=== PATIENT | male | born 1965 | race Caucasian/White ===

== ENCOUNTER → 2019-09-27 13:49 | Outpatient (BNVA) | payer MEDICARE, SELFPAY | PROVIDERS: Visit Provider Anesthesiology | DX: G89.29 Other chronic pain (principal); M54.12 Radiculopathy, cervical region; M51.26 Other intervertebral disc displacement, lumbar region; M47.817 Spondylosis without myelopathy or radiculopathy, lumbosacral region; R51 Headache; Z79.891 Long term (current) use of opiate analgesic | CPT/HCPCS: 99214 ==

== ENCOUNTER 2019-10-23 11:53 | Outpatient (CLI) | payer MEDICARE, SELFPAY ==
--- NOTE | 2019-10-23 12:06 | ECG_ITS ---
NAME OF STUDY: TREADMILL STRESS TEST INDICATION: PALPITATIONS AND TACHY ARRYTHMIA, EXERCISE DATA: The patient was exercised by Won protocol. Baseline heart rate was 94 beats per minute. Baseline blood pressure was 130/86 millimeters of mercury. Target heart rate was 168 beats per minute. Maximum heart rate achieved was 152, which was 90 % of the target heart rate. Maximum blood pressure was 182/98 millimeters of mercury. Total exercise time was 3 minutes. Maximum METs achieved was 4.6, maximum VO2 was 16.1. The reason for ending the test was maximum effort achieved. The patient complained of shortness of breath during the stress test, which then resolved at the end of the test. ELECTROCARDIOGRAM: BASELINE: Sinus rhythm, normal axis, no significant ST-T changes at the baseline noted. EXERCISE: At the peak exercise level, No significant ST-T changes suggestive of ischemia noted. RECOVERY: During the recovery period, heart rate dropped appropriately. No significant ST-T changes in the recovery suggestive of ischemia noted. CONCLUSION: 1. Exercise capacity poor. 2. Heart rate response was appropriate. 3. Blood pressure response was appropriate. 4. Symptoms not suggestive of ischemia. 5. Electrocardiogram portion of the stress test was not suggestive of ischemia. 6. Nuclear scan will be documented separately. Please note that due to underachievement of Mets and low exercise capacity specificity and sensitivity of the EKG portion of stress test will be low Electronically Signed On 10-23-2019 18:29:46 BARGE WORKER by Lexi Pena M.D. [id number]
[2019-10-23 12:10] VITALS: BMI 33.8
[2019-10-23 14:46] VITALS: BP 157/87; PULSE 102
== END 2019-10-23 11:54 | disposition home or self-care (01) ==
LOC: CDL 11:58
PROVIDERS: Visit Provider Nurse Practitioner Family
DX: R00.2 Palpitations (principal); R00.0 Tachycardia, unspecified
CPT/HCPCS: 93017

== ENCOUNTER → 2019-11-26 13:49 | Outpatient (BNVA) | payer MEDICARE, SELFPAY | PROVIDERS: PCP Nurse Practitioner Family; Visit Provider Nurse Practitioner | DX: M47.817 Spondylosis without myelopathy or radiculopathy, lumbosacral region (principal); Z79.891 Long term (current) use of opiate analgesic | CPT/HCPCS: 99213 ==

== ENCOUNTER → 2020-03-13 13:52 | Outpatient (BNVA) | payer MEDICARE, SELFPAY | PROVIDERS: PCP Nurse Practitioner Family; Visit Provider Anesthesiology | DX: G89.29 Other chronic pain (principal); M51.26 Other intervertebral disc displacement, lumbar region; M47.817 Spondylosis without myelopathy or radiculopathy, lumbosacral region; M53.3 Sacrococcygeal disorders, not elsewhere classified; M54.12 Radiculopathy, cervical region; M77.10 Lateral epicondylitis, unspecified elbow; R51 Headache; Z79.891 Long term (current) use of opiate analgesic | CPT/HCPCS: 99214 ==

== ENCOUNTER → 2020-05-13 10:33 | Outpatient (BNVA) | payer MEDICARE, SELFPAY | PROVIDERS: Visit Provider Nurse Practitioner | DX: M51.26 Other intervertebral disc displacement, lumbar region (principal); M47.817 Spondylosis without myelopathy or radiculopathy, lumbosacral region; M53.3 Sacrococcygeal disorders, not elsewhere classified; M54.12 Radiculopathy, cervical region; Z79.891 Long term (current) use of opiate analgesic | CPT/HCPCS: 99213 ==

== ENCOUNTER → 2020-07-08 13:45 | Outpatient (BNVA) | payer MEDICARE, SELFPAY | PROVIDERS: PCP Nurse Practitioner Family; Visit Provider Anesthesiology | DX: M51.26 Other intervertebral disc displacement, lumbar region (principal); M47.817 Spondylosis without myelopathy or radiculopathy, lumbosacral region; M54.12 Radiculopathy, cervical region; R51.9 Headache, unspecified; M77.10 Lateral epicondylitis, unspecified elbow; M53.3 Sacrococcygeal disorders, not elsewhere classified; Z79.891 Long term (current) use of opiate analgesic | CPT/HCPCS: 99214 ==

== ENCOUNTER 2020-09-02 16:16 | Outpatient (CLI) | payer MEDICARE, SELFPAY ==
[2020-09-02 22:49] LABS: Alanine Aminotransferase 15 U/L (0-41); Albumin Level 3.9 g/dL (3.5-5.2); Alkaline Phosphatase 106 IU/L (40-130); Anion Gap 12.5 (5-19); Aspartate Amino Transferase 14 U/L (0-40); Blood Urea Nitrogen 16 mg/dL (6-20); Calcium 9.4 mg/dL (8.5-10.5); Carbon Dioxide 29 mmol/L (22-29); Chloride 103 mmol/L (98-107); Globulin 3.7 g/dL (1.3-4.6); Glomerular Filtration Rate 78.2 mL/min (90-130); Glucose 89 mg/dL (65-115); Osmolality Calculated 293 mOsm/kg (285-295); Potassium 3.5 mmol/L (3.5-5.1); Sodium 141 mmol/L (136-145); Total Bilirubin 0.2 mg/dL (0.15-1.2); Total Protein 7.6 g/dL (6.6-8.7)
== END 2020-09-02 16:17 | disposition home or self-care (01) ==
PROVIDERS: PCP Nurse Practitioner Family; Visit Provider Anesthesiology
DX: Z79.1 Long term (current) use of non-steroidal anti-inflammatories (NSAID) (principal)
CPT/HCPCS: 36415; 80053

== ENCOUNTER → 2020-09-10 13:54 | Outpatient (BNVA) | payer MEDICARE, SELFPAY | PROVIDERS: PCP Nurse Practitioner Family; Visit Provider Nurse Practitioner | DX: M51.26 Other intervertebral disc displacement, lumbar region (principal); M47.817 Spondylosis without myelopathy or radiculopathy, lumbosacral region; M53.3 Sacrococcygeal disorders, not elsewhere classified; M54.12 Radiculopathy, cervical region; Z79.891 Long term (current) use of opiate analgesic | CPT/HCPCS: 99213; 99214 ==

== ENCOUNTER → 2020-11-04 10:33 | Outpatient (BNVA) | payer MEDICARE, SELFPAY | PROVIDERS: PCP Nurse Practitioner Family; Visit Provider Nurse Practitioner | DX: M53.3 Sacrococcygeal disorders, not elsewhere classified (principal); M54.12 Radiculopathy, cervical region; M47.817 Spondylosis without myelopathy or radiculopathy, lumbosacral region; M51.26 Other intervertebral disc displacement, lumbar region; R10.9 Unspecified abdominal pain; Z87.442 Personal history of urinary calculi; Z79.891 Long term (current) use of opiate analgesic | CPT/HCPCS: 99213 ==

== ENCOUNTER → 2020-12-30 14:13 | Outpatient (BNVA) | payer MEDICARE, SELFPAY | PROVIDERS: PCP Nurse Practitioner Family; Visit Provider Anesthesiology | DX: G89.29 Other chronic pain (principal); M51.26 Other intervertebral disc displacement, lumbar region; M47.817 Spondylosis without myelopathy or radiculopathy, lumbosacral region; M54.12 Radiculopathy, cervical region; M54.9 Dorsalgia, unspecified; Z79.891 Long term (current) use of opiate analgesic | CPT/HCPCS: 99214 ==

== ENCOUNTER 2021-02-16 14:59 | Outpatient (CLI) | payer MEDICARE, SELFPAY ==
--- NOTE | 2021-02-16 15:00 | USCV_ITS ---
Jerrell Martinez Age: 56 Gender: M : 1965 Exam Date: 02/16/2021 14:52 Ordering Phys: Moni Ureña MD ([email or web address]) Technologist: Cindy Hernández [place] [facility] [place]: BLE RIGHT LEFT Brachial 153.00 mmHg Brachial 146.00 mmHg Pressure (mmHg) Waveform Pressure (mmHg) Waveform 152.00 HAND CLOTH FOLDER 180.00 153.00 DPA 167.00 1.02 Ankle/Brachial Index 1.10 0.97 Post-Exercise Ankle Brachial Index 1.08 117.00 Pre-Exercise Toe Pressure 169.00 FINDINGS Normal resting ABIs bilaterally Normal/near normal post exercise ABIs bilaterally Normal resting TBIs bilaterally CONCLUSIONS No evidence of any significant arterial obstruction, based on the above findings. Dr Reddy Gutierrez MD [facility] (Electronically Signed) Final Date: 22 Feb 2021 10:55 S
== END 2021-02-16 15:00 | disposition home or self-care (01) ==
PROVIDERS: PCP Nurse Practitioner Family; Visit Provider Internal Medicine Cardiovascular Disease
DX: M79.604 Pain in right leg (principal); M79.605 Pain in left leg
CPT/HCPCS: 93922

== ENCOUNTER 2021-02-17 15:14 | Outpatient (CLI) | payer MEDICARE, SELFPAY ==
--- NOTE | 2021-02-17 15:00 | USCV_ITS ---
Jerrell Martinez Age: 56 Gender: M : 1965 Exam Date: 02/17/2021 15:43 Ordering Phys: Moni Ureña MD ([email or web address]) Technologist: Cindy Hernández [place] [facility] [place]: HISTORY: PROCEDURES: FINDINGS: The veins were found to be easily compressible with spontaneous blood flow. Non pulsatile flow pattern. Significant venous reflux were noted in the proximal small saphenous vein segment of the right side, saphenofemoral junction and distal small saphenous vein segment on the left side CONCLUSIONS 1. No evidence of DVT in the above-mentioned identifiable veins. 2. Significant venous reflux of greater than 500 ms were noted at the proximal small saphenous vein segment on the right side. The venous segment was found to be of small caliber( 0.18cm), at this level. 3. Significant venous reflux of greater than 500 ms were noted at the mid small saphenous vein segment on the left side. The venous segment was a small caliber at this level, measuring 0.1 cm. Significant venous reflux also was noted at the left saphenofemoral junction. The venous segment was 0.68 cm in diameter and at the depth of 3.11 cm from the surface. Dr Reddy Gutierrez MD [facility] (Electronically Signed) Final Date: 22 Feb 2021 11:22 S
== END 2021-02-17 15:15 | disposition home or self-care (01) ==
LOC: RAD 15:17
PROVIDERS: PCP Nurse Practitioner Family; Visit Provider Internal Medicine Cardiovascular Disease
DX: M79.89 Other specified soft tissue disorders (principal)
CPT/HCPCS: 93970

== ENCOUNTER → 2021-03-16 13:21 | Outpatient (BNVA) | payer MEDICARE, SELFPAY | PROVIDERS: PCP Nurse Practitioner Family; Visit Provider Anesthesiology | DX: G89.29 Other chronic pain (principal); M47.817 Spondylosis without myelopathy or radiculopathy, lumbosacral region; M51.26 Other intervertebral disc displacement, lumbar region; M54.9 Dorsalgia, unspecified; M54.12 Radiculopathy, cervical region; R51.9 Headache, unspecified; Z79.891 Long term (current) use of opiate analgesic | CPT/HCPCS: 99214 ==

== ENCOUNTER → 2021-05-14 13:42 | Outpatient (BNVA) | payer MEDICARE, SELFPAY | PROVIDERS: PCP Nurse Practitioner Family; Visit Provider Anesthesiology | DX: G89.29 Other chronic pain (principal); M47.817 Spondylosis without myelopathy or radiculopathy, lumbosacral region; M51.26 Other intervertebral disc displacement, lumbar region; M54.12 Radiculopathy, cervical region; R51.9 Headache, unspecified; Z79.891 Long term (current) use of opiate analgesic | CPT/HCPCS: 99214 ==

== ENCOUNTER 2021-06-11 10:25 | Outpatient (CLI) | payer MEDICARE, SELFPAY ==
--- NOTE | 2021-06-11 10:34 | XR_ITS ---
WS: [id number] XR KUB [id number] REASON FOR EXAM: KIDNEY STONE FINDINGS: No urinary tract calculi are identified. CT scan of 07/14/2019 demonstrated no urinary tract calculi. Left iliac vein stent. No other significant abdominal or pelvic finding. XR/XR KUB [id number] IMPRESSION: No urinary tract calculi identified.
== END 2021-06-11 10:26 | disposition home or self-care (01) ==
LOC: RAD 10:29
PROVIDERS: PCP Nurse Practitioner Family; Visit Provider Nurse Practitioner Family
DX: N20.0 Calculus of kidney (principal); Z87.442 Personal history of urinary calculi
CPT/HCPCS: 74018; 81003

== ENCOUNTER 2021-07-01 14:22 | Outpatient (CLI) | payer MEDICARE, SELFPAY ==
--- NOTE | 2021-07-01 14:30 | XR_ITS ---
WS: [id number] XR KUB [id number] REASON FOR EXAM: HX OF UROLITHIASIS FINDINGS: No urinary tract calculi are identified. Large left iliac vein vascular stent. No other significant abdominal abnormality. XR/XR KUB [id number] IMPRESSION: No urinary tract calculi identified. (No urinary tract calculi identified on CT scan of the abdomen and pelvis 07/14/2019.)
--- NOTE | 2021-07-01 15:45 | CT_ITS ---
WS: [email or web address] CT kidney stone [id number] REASON FOR EXAM: LEFT FLANK PAIN IV CONTRAST ADMINISTERED: None. TOTAL EXAM DLP: 2494.[address] scans at [facility] use at least one of these dose optimization techniques: automat ed exposure control; mA and/or kV adjustment per patient size (includes targeted exams where dose is matched to clinical indication); or iterative reconstruction. FINDINGS: ABDOMEN: Fatty infiltration of the liver and pancreas unchanged from previous CT scan of 07/14/2019. Gallbladder is unremarkable. No intrarenal calculi are identified. No hydronephrosis or hydroureter is seen. No mass, adenopathy, focal fluid collection, or free fluid identified. No bowel abnormality is identified. PELVIS: Left iliac vein stent. At the level of the roof of the acetabulum, approximately 4 cm from the ureteral vesicle junction the re is a 3 mm calculus in the distal left ureter. No other significant pelvic abnormality is identified. Degenerative spondylosis in the lumbar spine. Chronic lumbar compression deformity L2. No significant abnormality of the bony pelvis. CT/CT kidney stone [id number] IMPRESSION: No obstructive uropathy is demonstrated however there is a 2-3 mm calculus in t he distal left ureter as described above. In retrospect on the plain film of the abdomen there are 2 small densities in t he left pelvis. One of these may represent the distal ureteral calculus seen on the CT scan.
== END 2021-07-01 14:23 | disposition home or self-care (01) ==
PROVIDERS: PCP Nurse Practitioner Family; Visit Provider Urology
DX: Z87.442 Personal history of urinary calculi (principal); R10.9 Unspecified abdominal pain
CPT/HCPCS: 74018; 74176; 81003

== ENCOUNTER → 2021-07-08 13:58 | Outpatient (BNVA) | payer MEDICARE, SELFPAY | PROVIDERS: PCP Nurse Practitioner Family; Visit Provider Anesthesiology | DX: G89.29 Other chronic pain (principal); M47.817 Spondylosis without myelopathy or radiculopathy, lumbosacral region; M51.26 Other intervertebral disc displacement, lumbar region; M54.12 Radiculopathy, cervical region; R51.9 Headache, unspecified; Z79.891 Long term (current) use of opiate analgesic | CPT/HCPCS: 99214 ==

== ENCOUNTER 2021-08-11 13:07 | Outpatient (CLI) | payer MEDICARE, SELFPAY ==
--- NOTE | 2021-08-11 13:15 | XR_ITS ---
WS: [id number] Exam: XR KUB [id number] Date/Time of Exam: 08/11/2021 1:12 PM Reason For Exam: LEFT FLANK PAIN No bowel obstruction or free air. No calcifications seen over the region of the kidneys. No sign of o rgan enlargement. Again noted is a left common iliac vein vascular stent unchanged in appearance. Bon y structures are intact. XR/XR KUB [id number] IMPRESSION: 1. No acute abdominal finding.
== END 2021-08-11 13:08 | disposition home or self-care (01) ==
LOC: RAD 13:08
PROVIDERS: PCP Nurse Practitioner Family; Visit Provider Urology
DX: R10.9 Unspecified abdominal pain (principal); R31.0 Gross hematuria
CPT/HCPCS: 74018; 81003

== ENCOUNTER → 2021-10-07 14:36 | Outpatient (BNVA) | payer MEDICARE, SELFPAY | PROVIDERS: PCP Nurse Practitioner Family; Visit Provider Anesthesiology | DX: G89.29 Other chronic pain (principal); M47.817 Spondylosis without myelopathy or radiculopathy, lumbosacral region; M51.26 Other intervertebral disc displacement, lumbar region; M54.12 Radiculopathy, cervical region; R51.9 Headache, unspecified; Z79.891 Long term (current) use of opiate analgesic | CPT/HCPCS: 99214 ==

== ENCOUNTER → 2021-11-26 13:23 | Outpatient (BNVA) | payer MEDICARE, SELFPAY | PROVIDERS: PCP Family Medicine Adult Medicine; Visit Provider Family Medicine Adult Medicine | DX: I10 Essential (primary) hypertension (principal); M54.2 Cervicalgia; M54.9 Dorsalgia, unspecified; G89.29 Other chronic pain; R51.9 Headache, unspecified | CPT/HCPCS: 80053; 80061; 84403; 84443; 85025 ==

== ENCOUNTER 2022-01-28 07:34 | Outpatient (CLI) | payer MEDICARE, SELFPAY ==
--- NOTE | 2022-01-28 07:39 | XR_ITS ---
WS: [email or web address] KUB, AP view, 01/28/2022 Clinical Data: STONES Comparison: KUB, 08/11/2021. Findings: No abnormal intraabdominal masses are seen. There are possible calcifications overlying the medial as pect of the left kidney. There is no dilatated small bowel or evidence of obstruction. There is a left iliac vein stent. XR/XR KUB [id number] Impression: Possible left renal calculi.
== END 2022-01-28 07:35 | disposition home or self-care (01) ==
LOC: RAD 07:35
PROVIDERS: PCP Family Medicine Adult Medicine; Visit Provider Urology
DX: N20.0 Calculus of kidney (principal); R31.21 Asymptomatic microscopic hematuria; N53.12 Painful ejaculation; N20.9 Urinary calculus, unspecified; R31.0 Gross hematuria
CPT/HCPCS: 74018; 81003; 87086; 88112; 99213

== ENCOUNTER 2022-03-11 08:02 | Outpatient (CLI) | payer MEDICARE, SELFPAY ==
--- NOTE | 2022-03-11 08:30 | CT_ITS ---
WS: [id number] CT ABDOMEN AND PELVIS WITH AND WITHOUT CONTRAST HISTORY: GROSS HEMATURIA TECHNIQUE: Unenhanced 5 mm axial imaging first performed through the abdomen. Post contrast imaging t hrough the abdomen and pelvis. Oral contrast has not been provided. Sagittal and coronal reformats a re submitted. All CT scans at [facility] use at least one of these dose optimization techniqu es: automated exposure control; mA and/or kV adjustment per patient size (includes targeted exams whe re dose is matched to clinical indication); or iterative reconstruction. CONTRAST: Omnipaque 300; 95 mL IV. DLP: 4186.83 mGy.cm COMPARISON: 07/01/2021 and 07/14/2019 Lung bases are clear. Normal size heart. No hiatal hernia. RIGHT kidney: No renal stone, obstruction or mass. Incomplete opacification of the ureter. The ureter is small size with no filling defects. LEFT kidney: No renal stone, obstruction or mass. No uroepithelial filling defects. The ureter is not dilated. Normal size liver. Gallbladder and spleen are negative. Normal size pancreas with moderate fatty repl acement. Normal adrenal glands. Minimal atherosclerosis aorta with no aneurysm. Kidneys are being nor kerry enhanced. No ischemic changes. No ascites or adenopathy within the abdomen or pelvis. No GI tract obstruction. Stomach and small bowel are negative. Normal appendix. No significant divert icular disease. There is a stent within the IVC extending into the LEFT iliac vein. No free fluid or adenopathy in the pelvis. The urinary bladder is only minimally distended. No intral uminal filling defects are identified. No osteoblastic or osteolytic destructive bone lesions. Chroni c L2 compression fracture. CT/CT abdomen pelvis wo/w [id number] IMPRESSION: 1. No renal stone, obstruction or mass. 2. No uroepithelial lesions are identified. 3. No bladder mass or abnormality. 4. No adenopathy or ascites. 5. Chronic L2 compression fracture.
[2022-03-11] MEDS: iohexol 300 mg/mL 100 mL Btl IV (08:32)
== END 2022-03-11 08:03 | disposition home or self-care (01) ==
LOC: RAD 08:05
PROVIDERS: PCP Family Medicine Adult Medicine; Visit Provider Urology
DX: R31.0 Gross hematuria (principal)
CPT/HCPCS: 52000; 74178; 81003; 99213

== ENCOUNTER → 2022-04-29 09:04 | Outpatient (BNVA) | payer MEDICARE, SELFPAY | PROVIDERS: PCP Family Medicine Adult Medicine; Visit Provider Urology | DX: N41.1 Chronic prostatitis (principal); R31.0 Gross hematuria; N20.9 Urinary calculus, unspecified | CPT/HCPCS: 99214 ==

== ENCOUNTER → 2022-06-24 16:37 | Outpatient (BNVA) | payer MEDICARE, SELFPAY | PROVIDERS: PCP Family Medicine Adult Medicine; Visit Provider Family Medicine Adult Medicine | DX: I10 Essential (primary) hypertension (principal); N18.2 Chronic kidney disease, stage 2 (mild); M79.606 Pain in leg, unspecified; R73.9 Hyperglycemia, unspecified; E66.9 Obesity, unspecified; R25.2 Cramp and spasm; M25.511 Pain in right shoulder; M47.817 Spondylosis without myelopathy or radiculopathy, lumbosacral region | CPT/HCPCS: 80053; 83036; 84443; 85025 ==

== ENCOUNTER → 2022-08-02 15:21 | Outpatient (BNVA) | payer MEDICARE, SELFPAY | PROVIDERS: PCP Family Medicine Adult Medicine; Visit Provider Urology | DX: N20.9 Urinary calculus, unspecified (principal); R31.0 Gross hematuria; N52.9 Male erectile dysfunction, unspecified; R31.21 Asymptomatic microscopic hematuria; N41.1 Chronic prostatitis | CPT/HCPCS: 81003; 99213 ==

== ENCOUNTER → 2022-12-05 15:29 | Outpatient (BNVA) | payer MEDICARE, SELFPAY | PROVIDERS: PCP Family Medicine Adult Medicine; Visit Provider Urology | DX: N41.1 Chronic prostatitis (principal); N20.9 Urinary calculus, unspecified; R31.21 Asymptomatic microscopic hematuria; R31.0 Gross hematuria; N52.9 Male erectile dysfunction, unspecified | CPT/HCPCS: 81003; 99213 ==

== ENCOUNTER → 2023-03-21 15:16 | Outpatient (BNVA) | payer MEDICARE, SELFPAY | PROVIDERS: PCP Family Medicine Adult Medicine; Visit Provider Family Medicine Adult Medicine | DX: R73.03 Prediabetes (principal); I12.9 Hypertensive chronic kidney disease with stage 1 through stage 4 chronic kidney disease, or unspecified chronic kidney disease; N18.2 Chronic kidney disease, stage 2 (mild) | CPT/HCPCS: 80053; 80061; 83036; 84443 ==

== ENCOUNTER 2024-05-14 15:16 | Outpatient (CLI) | payer OTHER, SELFPAY | END 2024-05-14 15:17 | disposition home or self-care (01) | LOC: RAD 15:17 | PROVIDERS: PCP Family Medicine Adult Medicine; Visit Provider Registered Nurse Neonatal Intensive Care | DX: S42.022A Displaced fracture of shaft of left clavicle, initial encounter for closed fracture (principal); S43.52XA Sprain of left acromioclavicular joint, initial encounter; W19.XXXA Unspecified fall, initial encounter; Z98.890 Other specified postprocedural states | CPT/HCPCS: 73030 ==

== ENCOUNTER → 2024-05-17 09:33 | Outpatient (BNVA) | payer MEDICARE, SELFPAY | PROVIDERS: PCP Family Medicine Adult Medicine; Visit Provider Physician Assistant | DX: S42.002A Fracture of unspecified part of left clavicle, initial encounter for closed fracture (principal); W19.XXXA Unspecified fall, initial encounter | CPT/HCPCS: 73000; 73030; 99203 ==

== ENCOUNTER → 2024-12-04 14:44 | Outpatient (BNVA) | payer MEDICARE, SELFPAY | PROVIDERS: PCP Family Medicine Adult Medicine; Visit Provider Family Medicine | DX: E11.9 Type 2 diabetes mellitus without complications (principal); R00.0 Tachycardia, unspecified; E78.5 Hyperlipidemia, unspecified | CPT/HCPCS: 80053; 80061; 83036; 84439; 84443; 85025 ==

== ENCOUNTER 2025-03-27 11:32 | Outpatient (CLI) | payer MEDICARE, SELFPAY ==
--- NOTE | 2025-03-27 11:43 | XR_ITS ---
WS: [email or web address] XR hip BI m 5V wo/w pel* [id number] REASON FOR EXAM: R hip pain FINDINGS: RIGHT HIP: No fracture or focal bone lesion. Minimal to mild narrowing of the joint space with mild subchondral sclerosis and mild osteophytosis of the femoral head. LEFT HIP: No fracture or focal bone lesion. Minimal to mild narrowing of the joint space with mild subchondral sclerosis and osteophytosis. Mild osteophytosis of the femoral head. XR/XR hip BI m 5V wo/w pel* [id number] IMPRESSION: Symmetric mild osteoarthritis of the hips.
== END 2025-03-27 11:33 | disposition home or self-care (01) ==
PROVIDERS: PCP Family Medicine; Visit Provider Family Medicine
DX: M16.0 Bilateral primary osteoarthritis of hip (principal); M25.752 Osteophyte, left hip; M25.751 Osteophyte, right hip
CPT/HCPCS: 73523

== ENCOUNTER 2025-04-13 16:12 | Emergency (ER) | payer MEDICARE, SELFPAY ==
--- OUTSIDE RECORDS SUMMARY | 2024-07-20 04:00 | XMS_ITS ---
Author Organization [facility] Address [address] [place] [address] Care Team Providers Care Hydrologic Modeler Name Role Phone Carmen GRUBER, Gavin Primary Care Provider Unav Seema Field Unavailable [phone] Migration, Provider Unavailable Unavailable REASON FOR VISIT EMR-Orestes Encounters Encounter Location Date Provider Diagnosis Migrated_Facility 0 0 07/20/2024 Provider Migration Plan Of Treatment Medication Medication Name Sig Start Date Stop Date Notes oxyCODONE HCl 10 MG Tablet 1 Tablet Ever y 8 Hours PRN Oral 02/09/2022 03/11/2022 Progress Notes * Jerrell BATISTA CDOB:1964 (60 yo M)Acc No.[id number]:07/20/2024 Patient: David BLOOD Jerrell Brar :1965 A ge:59 Y S ex:Male Address:[facility] [address] [place] [phone] * Refills Stop oxyCODONE HCl Tablet, 10 MG, Oral, 1 Tablet Every 8 Hours PRN Subjective: * Chief Complaints: * E MR-Orestes * * Date:
--- OUTSIDE RECORDS SUMMARY | 2024-07-21 04:00 | XMS_ITS ---
Author Organization [facility] Address [address] [place] [address] Care Team Providers Care Food Checkers And Cashiers Supervisor Name Role Phone Carmen GRUBER, Gavin Primary Care Provider UnaSeema Arizmendi Unavailable [phone] Migration, Provider Unavailable Unavailable Allergies Allergen (clinical drug ingredient) Drug/Non Drug Allergy documented on EMR Reaction Allergy Type Onset Date Status celecoxib Celecoxib nausea Drug Allergy Active duloxetine Cymbalta nausea Drug Allergy Active valproate Depakote nausea Drug Allergy Active gabapentin Gabapentin nausea Drug Allergy Activ e zonisamide Zonegran nausea Drug Allergy Active REASON FOR VISIT EMR-Orestes Medications Medication SIG (Take, Route, Frequency, Duration) Notes Start Date End Date Status dilTIAZem HCl *[facility]* Active Oxycodone *Reorder from In dispan for eRx and Interaction Alerts* Active Flomax *[facility]* Active tizanidine *Reorder from In dispan for eRx and Interaction Alerts* Active Maxalt *[facility]* Active Warfarin *Reorder from In dispan for eRx and Interaction Alerts* Active Social History Social History Additional Details Category Social Info Options Details Migrated Social History Migrated Social History Alcoholic beverages? - Yes, Currently on disability? - Yes, Drug or substance abuse? - No, If yes, frequency of alcoholic beverages - Less than 1 drink per week., Marital Status - , Nonprescription drug use? - No, Smoking - No, Working currently? - No Encounters Encounter Location Date Provider Diagnosis Migrated_Facility 0 0 07/21/2024 Provider Migration Plan Of Treatment No Information Progress Notes * Jerrell BATISTA CDOB:1964 (60 yo M)Acc No.[id number]:07/21/2024 Patient: Jerrell CORONADO :1965 A ge:59 Y S ex:Male Address:[facility] [address] [place] [phone] Subjective: * Chief Complaints: * E MR-Orestes * Surgical History: Hernia repair Left shoulder Repair Lumbar Back Surgery L4-L5 * Family History: M igrated Family History: : Diabetes, H eart disease. * Social History: M igrated Social History: M igrated Social History: Alcoholic beverages? - Yes, C urrently on disability? - Yes, D rug or substance abuse? - No, I f yes, frequency of alcoholic beverages - Less than 1 drink per week., M arital Status - , N onprescription drug use? - No, S moking - No, W orking currently? - No. * Medications: T akingOxycodone , Notes to Pharmacist: *Reorder from Medispan for eRx and Interaction Alerts*Maxalt , Notes to Pharmacist: *Pick strength-form from Medis[facility] for eRX*dilTIAZem HCl , Notes to Pharmacist: *Pick strength-form from [facility] for eRX*Flomax , Notes to Pharmacist: *Pick strength-form from [facility] for eRX*Warfarin , Notes to Pharmacist: *Reorder from [facility] for eRx and Interaction Alerts*tizanidine , Notes to Pharmacist: *Reorder from [facility] for eRx and Interaction Alerts*Taking Oxycodone , Notes to Pharmacist: *Reorder from Medis[facility] for eRx and Interaction Alerts*Taking Maxalt , Notes to Pharmacist: *Pick strength- form from [facility] for eRX*Taking dilTIAZem HCl , Notes to Pharmacist: *Pick strength-form from [facility] for eRX*Taking Flomax , Notes to Pharmacist: *Pick strength-form from [facility] for eRX*Taking Warfarin , Notes to Pharmacist: *Reorder from Medis[facility] for eRx and Interaction Alerts*Taking tizanidine , Notes to Pharmacist: *Reorder from Medis[facility] for eRx and Interaction Alerts* * Allergies: C ymbalta: nausea - AllergyZonegran: nausea - AllergyGabapentin: nausea - AllergyCelecoxib: nausea - AllergyDepakote: nausea - Allergy * * Date:
[2025-04-13 16:15] VITALS: BP 144/88; PULSE 78; RESP 16; TEMP 36.6; O2SAT 97; BMI 35.9
--- OUTSIDE RECORDS SUMMARY | 2025-04-13 16:16 | XMS_ITS | Patient Health Record ---
Author Organization [facility] Address [address] [place] [address] Care Team Providers Care International Flight Attendant Name Role Phone Carmen GRUBER, Gavin Primary Care Provider Seema Arriaga Unavailable [phone] Migration, Provider Unavailable Unavailable Reason For Referral No Information Medications Medication SIG (Take, Route, Frequency, Duration) Notes Start Date End Date Status dilTIAZem HCl *Pick strength-f orm from [facility] for eRX* Active Oxycodone *Reorder from Co dispan for eRx and Interaction Alerts* Active Flomax *Pick strength-f orm from Med[facility] for eRX* Active Warfarin *Reorder from Co dispan for eRx and Interaction Alerts* Active tizanidine *Reorder from Co dispan for eRx and Interaction Alerts* Active Maxalt *Pick strength-f orm from [facility] for eRX* Active Social History Social History Additional Details [...] Diagnosis Migrated_Facility 0 0 07/20/2024 Provider Migration Migrated_Facility 0 0 07/21/2024 Provider Migration Plan Of Treatment No Information Insurance Providers Payer Name Payer Address Payer Phone Subscriber Number Group Number Insured Name Patient Relationship to Insured Coverage Start Date Coverage End Date [employer] - Out of Network [address] [address] [place] [phone] [id number] Jerrell Nguyen Self - patient is the insured Medical (General) History Surgical History Surgery Date(Month/Year) Hernia repair Left shoulder Repair Lumbar Back Surgery L4-L5
--- OUTSIDE RECORDS SUMMARY | 2025-04-13 16:16 | XMS_ITS | Clinical Summary ---
Author Organization [facility] Address [address] Esparza: [place] [address] Care Team Providers Care Elephant Tamer Name Role Phone Carrasco, Aniya Cuellar APN Primary Care Provider Allergies Active Allergy Reactions Criticality Noted Date Comments Celecoxib Nausea and Vomiting Low 07/27/2012 Divalproex Rash Low 07/28/2012 Duloxetine Nausea and Vomiting Low 07/27/2012 Gabapentin Other (See Comments) 07/27/2012 Facial tic Sumatriptan Succinate Hypotension Medium 07/27/2012 Medications tamsulosin (FLOMAX) 0.4 mg capsule Take 0.4 mg by mouth daily. 12/11/2018 Active oxyCODONE (ROXICODONE) 20 mg tablet Take 20 mg by mouth every 6 hours as needed for Pain, Severe (every 5 hours prn). 04/05/2018 Active rizatriptan (MAXALT) 10 mg Tablet Take 10 mg by mouth every 2 hours as needed for Migraine may repeat in 2 hours; max dose 30mg in 24 hours . 04/05/2018 Active tiZANidine (ZANAFLEX) 4 mg Tablet Take 4 mg by mouth every 6 hours as needed for Spasm. 04/05/2018 Active albuterol sulfate 90 mcg/Actuation inhaler 1 time daily as needed. 02/04/2022 Active diphenhydrAMINE (BENADRYL) 50 mg capsule Take 50 mg by mouth every 6 hours as needed for Allergies. Active fluticasone propionate (FLONASE) 50 mcg/spray [place], Suspension nasal inhaler 1 time daily as needed. 04/18/2022 Active loratadine (CLARITIN) 10 mg tablet Take 10 mg by mouth daily. Active ondansetron (ZOFRAN) 4 mg Tablet Take 4 mg by mouth every 8 hours as needed for Nausea/Emesis . 02/13/2017 Active fluticasone propion-salmete roL (ADVAIR HFA) 45-21 mcg/actuation HFA Aerosol Inhaler Twice A Day 12/03/2021 Active levoFLOXacin 1.5 % solution Take by mouth. 04/29/2022 Active magnesium oxide (MAG-OX) 400 mg (241.3 mg magnesium) tablet TAKE 1 TO 2 TABLETS BY MOUTH EVERY DAY FOR leg cramps 05/10/2023 Active montelukast (SINGULAIR) 10 mg tablet 03/23/2023 Active warfarin (COUMADIN) 2.5 mg tablet Take 2.5 mg by mouth daily. Active HYDROcodone-tamiko taminophen (NORCO) 10-325 mg Tablet Take 1 Tablet by mouth every 4 hours as needed. 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 Resolved Problems Problem Noted Date Diagnosed Date Resolved Date Deep venous thrombosis of lo wer extremity, left 11/04/2014 12/10/2018 Deep venous thrombosis of lower extremity 07/28/2012 12/10/2018 Encounters Date Type Department Care Team Description 03/18/2025 External Device Data [facility] ABSTRACTION Provider, Abstract 03/18/2025 Anti-coag visit [facility] [address] [place] [address] Benita Jaime RN Anticoagulated with warfarin (Primary Dx); History of DVT of lower extremity 03/03/2025 Telephone [facility] [address] [place] [phone] Provider, Abstract Needs Appointment 03/03/2025 Anti-coag visit [facility] [address] [place] [phone] Benita Jaime RN Anticoagulated with warfarin (Primary Dx); History of DVT of lower extremity 02/18/2025 Anti-coag visit [address] [phone] Rena Espinal RN Anticoagulated with warfarin (Primary Dx); History of DVT of lower extremity 02/12/2025 External Device Data ST[facility] ABSTRACTION Provider, Abstract 02/11/2025 External Device Data [facility] ABSTRACTION Provider, Abstract 02/04/2025 Anti-coag visit [address] [phone] Seema Fuller, CHRISTI Anticoagulated with warfarin (Primary Dx); History of DVT of lower extremity 01/21/2025 Anti-coag visit [address] [phone] Seema Fuller, CHRISTI Anticoagulated with warfarin (Primary Dx); History of DVT of lower extremity 2025 Anti-coag visit [address] [phone] Seema Fuller, CHRISTI Anticoagulated with warfarin (Primary Dx); History of DVT of lower extremity from Last 3 Months Family History Medical History Relation Name Comments Heart Disease Father Diabetes Mother Relation Name Status Comments Father Mother Social History Tobacco Use Types Packs/Day Years Used Date Smoking Tobacco: Never Smokeless Tobacco: Never Alcohol Use Standard Drinks/Week Comments No 0 (1 standard drink = 0.6 oz pur e alcohol) Sex and Gender Information Value Date Recorded Sex Assigned at Not on file 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 Gender Identity Not on file Sexual Orientation Not on file Last Filed Vital Signs Vital Sign Reading Time Taken Comments Blood Pressure 106/72 05/23/2024 3:03 PM CDT Pulse 78 05/23/2024 3:03 PM CDT Temperature - - Respiratory Rate - - Oxygen Saturation - - Inhaled Oxygen Concentration - - Weight 104.6 kg (230 lb 11.2 oz) 05/23/2024 3:03 PM CDT Height 177.8 cm (5' 10 ) 05/23/2024 3:03 PM CDT Body Mass Index 33.1 05/23/2024 3:03 PM CDT Plan of Treatment Upcoming Encounters Date Type Department Care Team (Late st Contact Info) Description 07/03/2025 2:15 PM CDT Office Visit [facility] [address] [place] [address] Health Maintenance Due Date Last Done Comments Pre-Diabetes and Diabetes Screening 1965 DTAP/TDAP/TD VACCINES (1 - Tdap) 1986 HEPATITIS B VACCINES (1 of 3 - 19+ 3-dose series) 12/25 COLORECTAL SCREENING 01/18/2012 Colorectal Cancer Screening 01/18/2012 FIT-DNA Q 3 years 01/18/2012 FIT/FOBT Q 1 year 01/18/2012 Flex Sig/CT Colonography Q 5 years 01/18/2012 ZOSTER VACCINE (1 of 2) 2017 INFLUENZA VACCINE (#1) 2025 Procedures Procedure Name Priority Date/Time Associated Diagnosis Comments POC PROTIME/INR Routine 03/17/2025 POC PROTIME/INR Routine 03/03/2025 POC PROTIME/INR Routine 02/17/2025 POC PROTIME/INR Routine 02/03/2025 4:00 PM CDT POC PROTIME/INR Routine 01/20/2025 9:00 PM CDT from Last 3 Months Results * (ABNORMAL) POC PROTIME/INR (03/17/2025) Only the most recent of5 resultswithin the time period is included. PROTIME POC EXTERNAL LAB INR POC 2.2 EXTERNAL LAB Blood, capillary 03/17/2025 us Titi Roblero MD POINT OF CARE TESTING Final Result EXTERNAL LAB from Last 3 Months Insurance [employer] M[employer] * Guarantor: [id number] EMPLOYED Account Type Relation to Patient Date of Phone Billing Address Workers Comp Employer Care Teams Elephant Tamer Relationship Specialty Start Date End Date Aniya Carrasco APN [facility] [address] [address] PCP - General NURSE PRACTITIONER 07/26/12
--- OUTSIDE RECORDS SUMMARY | 2025-04-13 16:16 | XMS_ITS | Encounter Summary ---
Author Organization [facility] Address [address] [place] [address] Care Team Providers Care Food Safety Specialist Name Role Phone Carrasco, Aniya Cuellar APN Primary Care Provider Reason for Visit * Reason Onset Date Comments Needs Appointment 03/03/2025 Encounter Details Date Type Department Care Team (Late st Contact Info) Description 03/03/2025 Telephone [facility] [address] [place] [address] Provider, Abstract NO ADDRESS ON FILE Needs Appointment Social History Tobacco Use Types Packs/Day Years Used Date Smoking Tobacco: Never Smokeless Tobacco: Never Alcohol Use Standard Drinks/Week Comments No 0 (1 standard drink = 0.6 oz pur e alcohol) Sex and Gender Information Value Date Recorded Sex Assigned at Not on file 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 Roblero has retired Cardiology Marklogic Developer: Keyon documented in this encounter Plan of Treatment Upcoming Encounters Date Type Department Care Team (Late st Contact Info) Description 07/03/2025 2:15 PM CDT Office Visit [facility] [address] [place] [id number] documented as of this encounter Visit Diagnoses Not on filedocumented in this encounter Care Teams Food Safety Specialist Relationship Specialty Start Date End Date Aniya Carrasco APN [address] [facility] [address] [place] [address] PCP - General NURSE PRACTITIONER 07/26/12 documented as of this encounter
--- OUTSIDE RECORDS SUMMARY | 2025-04-13 16:16 | XMS_ITS | Patient Health Record ---
Author Organization [employer], [facility] Address [address] [place] [address] Care Team Providers Care Encoding Machine Operator Name Role Phone JOHN Morales APRN, Larry Primary Care Provider UnaNEHAL Nielson Unavailable [phone] Allergies Allergen (clinical drug ingredient) Drug/Non Drug Allergy documented on EMR Reaction Allergy Type Onset Date Status valproate Divalproex Sodium Unknown Drug Allergy Active duloxetine DULoxetine HCl Unknown Drug Allergy A ctive gabapentin Gabapentin Unknown Drug Allergy Activ e celecoxib Celecoxib Unknown Drug Allergy Active Reason For Referral No Information Medications Medication SIG (Take, Route, Frequency, Duration) Notes Start Date End Date Status Potassium 99 MG 1 tablet Orally Once a day Active Magnesium 300 MG 1 capsule with a taiwo l Orally Once a day Active levoFLOXacin 500 MG 1 tablet Orally Once a day Active Loratadine 10 MG 1 tablet Orally Once a day Active Carisoprodol 350 MG 1 tablet as needed O rally Four times a day Active Tamsulosin HCl 0.4 MG 1 capsule Orally O nce a day Active Warfarin Sodium 2.5 MG 1 tablet Orally O nce a day Active Atorvastatin Calcium 80 MG 1 tablet Oral ly Once a day Active Metoprolol Succinate 50 MG 1 capsule Ora lly Once a day Active Problems Problem Type SNOMED Code ICD Code Onset Dates Problem Status W/U Status Risk Notes Problem Benign prostatic hypertrophy without outflow obstruction (696614727) BPH loc w/o ur obs/LUTS (N40.0) Active confirmed Problem History of DVT (deep vein thrombosis) (184122539) History of DVT (deep vein thrombosis) (Z86.718) Active confirmed Problem Chronic prostatitis (84099068) Prostatitis, chronic (N41.1) Active confirmed Encounters Encounter Location Date Provider Diagnosis [facility], [facility] [address] [place] [address] 02/25/2025 [facility] Plan Of Treatment No Information Medical (General) History Medical History History ICD Code asthma recurrent bladder infection Surgical History Surgery Date(Month/Year) hernia repair blood clot back surgery shoulder surgery Hospitalization History Reason Date(Month/Year) see surgeries
--- NOTE | 2025-04-13 16:29 | XRR_ITS ---
PROCEDURE INFORMATION: Exam: XR Right Hip Exam date and time: 04/13/2025 5:41 PM Age: 60 years old Clinical indication: Right hip; Lower back/rt hip pain-unable to bear weight-no known injury TECHNIQUE: Imaging protocol: Radiologic exam of the right hip. Views: 1 view hip with pelvis when performed. COMPARISON: CR XR hip BI m 5V wo/w pel* [id number] 03/27/2025 11:48 AM FINDINGS: Bones/joints: No acute fracture or dislocation. Mild degenerative changes about both hips. Soft tissues: Vascular stenting noted. XR/XR hip RT 2-3V wo/w pel* [id number] IMPRESSION: No acute findings.
--- NOTE | 2025-04-13 16:29 | XRR_ITS ---
PROCEDURE INFORMATION: Exam: XR Lumbosacral Spine Exam date and time: 04/13/2025 5:41 PM Age: 60 years old Clinical indication: Pain; Lumbago with sciatica; Prior surgery; Surgery date: 6+ months; Surgery type: Lumbar discectomy, vascular stent placement; Additional info: Lower back/rt hip pain-unable to bear weight-no known injury TECHNIQUE: Imaging protocol: Radiologic exam of the lumbosacral spine. Views: 2 or 3 views. COMPARISON: CR XR hip BI m 5V wo/w pel* [id number] 03/27/2025 11:48 AM FINDINGS: Bones/joints: Transitional anatomy again noted with lumbarized S1. No acute fracture. Normal alignment. Degenerative disc height loss at the lumbosacral junction. Anterior osteophytosis at L1-L2 with superior endplate Schmorl's node at L2, unchanged. Facet arthropathy greatest at the lumbosacral junction where there is significant osseous neural foraminal encroachment. Soft tissues: Vascular stenting noted. XR/XR lumbar spine 2-3V* [id number] IMPRESSION: Degenerative facet arthropathy at the lumbosacral junction resulting in significant osseous neural foraminal encroachment. No acute fracture or subluxation, however.
[2025-04-13 17:19] VITALS: BP 154/80
[2025-04-13 18:32] VITALS: BP 144/71; PULSE 78; O2SAT 96
[2025-04-13 20:16] LABS: Hematocrit 47.1 % (37-53); Hemoglobin 15.20 g/dL (11.27-16.99); Mean Corpuscular HGB Conc 32.3 g/dL (30-55); Mean Corpuscular Hemoglobin 28.9 pg (27-33); Mean Corpuscular Volume 89.5 fl (82-101); Nucleated Red Blood Cells % 0 %; Platelet Count 223 10^3/cmm (157-399); Red Blood Count 5.26 10^6/uL (3.85-5.65); White Blood Count 9.62 10^3/uL (3.29-11.43)
[2025-04-13 20:31] LABS: Alanine Aminotransferase 22 U/L (0-41); Albumin Level 3.8 g/dL (3.5-5.2); Alkaline Phosphatase 120 U/L (40-130); Anion Gap 16.0 (5-19); Aspartate Amino Transferase 19 U/L (0-40); Blood Urea Nitrogen 19 mg/dL (6-20); Calcium 9.0 mg/dL (8.5-10.5); Carbon Dioxide 26 mmol/L (22-29); Chloride 99 mmol/L (98-107); Creatinine Clr Calc Pharmacy 101.5424; Globulin 3.9 g/dL (1.3-4.6); Glucose 106 mg/dL (65-115); Osmolality Calculated 287 mOsm/kg (285-295); Potassium 4.0 mmol/L (3.5-5.1); Sodium 137 mmol/L (136-145); Total Protein 7.7 g/dL (6.6-8.7)
[2025-04-13 20:53] VITALS: BP 127/93; PULSE 78; RESP 16; O2SAT 95
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
== END 2025-04-13 21:02 | disposition home or self-care (01) ==
PROVIDERS: Emergency Provider General Practice; PCP Family Medicine
DX: M25.551 Pain in right hip (principal); M54.50 Low back pain, unspecified; M16.0 Bilateral primary osteoarthritis of hip
CPT/HCPCS: 36415; 72100; 73502; 80053; 85025; 86140; 99284

== ENCOUNTER → 2025-05-07 09:18 | Outpatient (BNVA) | payer MEDICARE, SELFPAY | PROVIDERS: PCP Family Medicine; Visit Provider Student in an Organized Health Care Education/Training Program | DX: M25.551 Pain in right hip (principal) | CPT/HCPCS: 20610; 73502; 99204; J3301; J3490; J9999 ==

== ENCOUNTER 2025-06-10 13:28 | Outpatient (CLI) | payer MEDICARE, SELFPAY ==
--- NOTE | 2025-06-10 13:36 | MR_ITS ---
WS: [id number] EXAMINATION: MR hip RT wo con* [id number] ORDER DATE: 06/10/2025 2:14 PM COMPARISON: None. HISTORY: M25.551 - Pain in right hip CONTRAST: None. TECHNIQUE: Coronal STIR of the Pelvis. Coronal proton density, coronal T1, axial T2 fat sat, axial T1, sagittal T2 fat sat, and sagittal T1 performed of the hip. FINDINGS: Diffuse edema throughout the RIGHT femoral head and neck with slight flattening of the RIGHT femoral head. Associated serpiginous susceptibility artifact in the RIGHT femoral head along the articular surface compatible with avascular necrosis. Extensive edema extends into the femoral neck and intratrochanteric region. Small joint effusion. Moderate joint space narrowing worse involving the superolateral joint space. Only trace edema in the acetabulum. In addition, avascular necrosis also involving the LEFT hip slightly less extensive with diffuse edema in the LEFT femoral head and neck. Additional region of avascular necrosis involving the superior articular surface femoral head. Moderate joint space narrowing. MR/MR hip RT wo con* [id number] IMPRESSION: 1. Bilateral femoral head avascular necrosis RIGHT greater than LEFT with diff use edema in the femoral heads and femoral necks bilaterally.
--- NOTE | 2025-06-10 13:38 | MR_ITS ---
WS: [id number] MRI LUMBAR SPINE NONCONTRAST TECHNIQUE: Sagittal T1, T2 and STIR imaging. Axial T1 and T2 imaging. CLINICAL INFORMATION: RADICULOPATHY, LUMBAR REGION COMPARISON: MRI 2018 FINDINGS: Mild lumbar curve. No acute compression. Mild concave deformity superior endplates T12 and L2 with endplate Schmorl's nodes. This has a chronic appearance. No edema. Fatty marrow endplate changes. Fatty marrow degenerative changes L5-S1. L1-L2: Mild annular bulging. Mild facet arthropathy. Spinal canal and foramen are patent. L2-L3: Mild annular bulging. Mild facet arthropathy. Spinal canal and foramen are patent. L3-L4: Mild annular bulging. Moderate central canal stenosis with narrowing of the subarticular recess. Moderate facet arthropathy. Mild bilateral foraminal narrowing. L4-L5: Slight retrolisthesis L4 on L5. Narrowing of the subarticular recess bilaterally RIGHT greater than LEFT. Moderate facet arthropathy. Mild LEFT foraminal narrowing. Prior hemilaminectomies. L5-S1: Mild annular bulging with slight effacement of the ventral thecal sac. Prior hemilaminectomies. Slight contact of the traversing LEFT greater than RIGHT S1 nerve roots. Moderate LEFT foraminal narrowing. RIGHT foramen is patent. Moderate facet arthropathy. Visualized pelvic bony structures: Normal. Paravertebral soft tissues: Normal. MR/MR lumbar spine wo con* [id number] IMPRESSION: 1. Prior postoperative changes hemilaminectomies L4-L5 and L5-S1. 2. Moderate central canal stenosis L3-4 is new compared to previous with narro wing of the subarticular recess bilaterally. 3. Small bilateral foraminal protrusions L3-4 with mild bilateral foraminal na rrowing RIGHT greater than LEFT. 4. Mild LEFT L4-5 foraminal narrowing. 5. Moderate LEFT L5-S1 foraminal narrowing. 6. Endplate Schmorl's nodes T12 and L2 new since 2018 with concave deformity t o the superior endplates. No edema
== END 2025-06-10 13:29 | disposition home or self-care (01) ==
LOC: RAD 13:31
PROVIDERS: PCP Family Medicine; Visit Provider Registered Nurse
DX: M54.16 Radiculopathy, lumbar region (principal); M25.551 Pain in right hip; M87.051 Idiopathic aseptic necrosis of right femur
CPT/HCPCS: 72148; 73721

== ENCOUNTER → 2025-08-05 09:11 | Outpatient (BNVA) | payer MEDICARE, SELFPAY | PROVIDERS: PCP Family Medicine; Visit Provider Family Medicine | DX: N40.1 Benign prostatic hyperplasia with lower urinary tract symptoms (principal); N13.8 Other obstructive and reflux uropathy; N41.1 Chronic prostatitis | CPT/HCPCS: 84153 ==